=== PATIENT | male | born 1980 | race Caucasian/White ===

== ENCOUNTER 2021-01-17 07:15 | Emergency (ER) | payer OTHER ==
[~2021-01-17] VITALS: Ht 175.3 cm; Wt 102.3 kg
[2021-01-17 07:21] VITALS: TEMP 97.8
[2021-01-17] MEDS ORDERED: FLEXERIL 1010 MG/TAB PO (08:25)
[2021-01-17 08:47] VITALS: BP 128/85; PULSE 77
== END 2021-01-17 08:35 | disposition home or self-care (01) ==
LOC: COL.ER 07:15
DX: S39.012A Strain of muscle, fascia and tendon of lower back, initial encounter (principal); R06.02 Shortness of breath; Z88.6 Allergy status to analgesic agent; X58.XXXA Exposure to other specified factors, initial encounter
CPT/HCPCS: J1885; J2360

== ENCOUNTER 2021-04-20 16:36 | Emergency (ER) | payer OTHER ==
[~2021-04-20] VITALS: Ht 175.3 cm; Wt 102.3 kg
[~2021-04-20 16:36] MED LIST: FLEXERIL 1010 MG/TAB PO
[2021-04-20 17:59] LABS: BASO # 0.1 (0.0-0.2); BASO % 0.8 % (0.0-2.0); EOS # 0.2 (0.0-0.7); EOS % 3.3 % (0-4.0); GRAN # 5.2 (1.4-6.5); GRAN % 70.7 % (42.2-75.2); HEMATOCRIT 41.9 % (42.0-52.0); HEMOGLOBIN 14.3 g/dl (13.5-18.0); LYMPH # 1.1 (1.2-3.4); LYMPH % 14.8 % (20.0-51.0); MEAN CELL VOLUME 88 fl (80.0-100.0); MEAN CORPUSCULAR HEMOGLOBIN 30 pg (27.0-31.0); MEAN CORPUSCULAR HGB CONC 34 g/dl (33.0-37.0); MEAN PLATELET VOLUME 10.5 fl (7.4-10.4); MONO # 0.7 (0.1-0.6); PLATELET COUNT 216 K/mm3 (130-400); RED BLOOD COUNT 4.74 M/mm3 (4.20-5.60); REDCELL DISTRIBUTION WIDTH-CV 12.3 % (11.5-14.5)
[2021-04-20] MEDS ORDERED: ZANAFLEX 4MG TAB4 MG PO (18:04)
[2021-04-20] MEDS ORDERED: CELEBREX 200MG200 MG PO (18:05)
[2021-04-20] MEDS ORDERED: LYRICA 150MG C150 MG PO (18:06)
[2021-04-20] MEDS ORDERED: PRINZIDE 12.5 M1 TA1 (18:06)
[2021-04-20 18:08] LABS: ALBUMIN 4.7 gm/dL (3.5-5.0); BILIRUBIN,TOTAL 0.5 mg/dL (0.0-1.0); CALCIUM 9.5 mg/dL (8.4-10.2); CREATININE, serum 0.72 (0.66-1.25); POTASSIUM 3.9 mmol/L (3.4-5.0); TOTAL PROTEIN 8.2 gm/dL (6.4-8.2)
[2021-04-20 18:40] VITALS: BP 141/85; PULSE 84; TEMP 98.2
== END 2021-04-20 18:52 | disposition home or self-care (01) ==
LOC: COL.ER 16:36
PROVIDERS: Physician Assistant
DX: R60.0 Localized edema (principal); I10 Essential (primary) hypertension; Z79.899 Other long term (current) drug therapy